=== PATIENT | female | born 1965 | race Caucasian/White ===

== ENCOUNTER 2021-05-18 18:59 | Emergency (ER) | payer OTHER ==
[~2021-05-18] VITALS: Ht 157.5 cm; Wt 61.2 kg
[2021-05-18 19:04] VITALS: BP 157/85
--- NOTE | 2021-05-18 19:32 | NUR ---
55 Y/O FEMALE PATIENT PRESENTS TO ED WITH C/O EPIGASTRIC PAIN X TODAY. PT STATES HAVING THIS PAIN ON AND OFF. PATIENT REPORTS CONSTIPATION X 3 DAYS. ABD IS SOFT, TENDER TO TOUCH. DENIES N/V/D; SKIN IS PINK/WARM/DRY; AAOX4 WITH EVEN AND STEADY GAIT; PATIENT STATES PAIN OF 8/10 AT THIS TIME THAT RADIATES TO THE RIGHT MID ABD; VSS; PATIENT POSITIONED FOR COMFORT; HOB ELEVATED; BEDRAILS UP X1; BED DOWN. PMEDHX:JULIENNE NKDA
[2021-05-18 19:38] LABS: BASOPHILS % (AUTO) 0.5 % (0.0-2.0); EOSINOPHILS # (AUTO) 0.6 K/uL (0-0.4); EOSINOPHILS % (AUTO) 9.8 % (0.0-4.0); HEMATOCRIT 29.4 % (36-48); LYMPHOCYTES # (AUTO) 1.5 K/uL (2.5-16.5); LYMPHOCYTES % (AUTO) 22.8 % (20.5-51.1); MEAN CORPUSCULAR HEMOGLOBIN 32 pg (27-31); MEAN CORPUSCULAR HGB CONC 34 g/dL (33-37); MEAN CORPUSCULAR VOLUME 92.7 fL (80-94); MONOCYTES # (AUTO) 0.4 K/uL (0.8-1.0); MONOCYTES % (AUTO) 6.8 % (1.7-9.3); NEUTROPHILS # (AUTO) 3.9 K/uL (1.8-7.7); NEUTROPHILS % (AUTO) 60.1 % (42.2-75.2); PLATELET COUNT (AUTO) 252 K/uL (140-450); RED BLOOD CELL COUNT(AUTO) 3.17 MIL/uL (4.20-5.40); WHITE BLOOD COUNT (AUTO) 6.5 K/uL (4.8-10.8)
[2021-05-18 19:59] LABS: ALBUMIN 3.6 g/dL (3.4-5.0); ANION GAP 13.9 (8-16); CARBON DIOXIDE 25.3 mmol/L (21-32); CREATININE 1.3 mg/dL (0.6-1.3); POTASSIUM 5.2 mmol/L (3.5-5.1); TOTAL BILIRUBIN 0.3 mg/dL (0.0-1.0)
--- NOTE | 2021-05-18 20:29 | NUR ---
us at bedside.
[2021-05-18] MEDS ORDERED: DICYCLOMINE HCL LIQUID 20 MG, ALUMINUM HYD/MAG/SIMETHICONE 30 ML, LIDOCAINE VISCOUS 2% ... PO ONE ×3 (21:55)
[2021-05-18] MEDS ORDERED: HYDROcodone/APAP 5/325 MG 1 TAB TAB PO ONE (22:05)
[2021-05-18 22:11] LABS: APPEARANCE,URINE CLEAR (CLEAR); BILIRUBIN,URINE NEGATIVE (NEGATIVE); BLOOD, URINE TRACE-I (NEGATIVE); COLOR,URINE YELLOW (YELLOW); LEUKOCYTE ESTERASE ,URINE NEGATIVE (NEGATIVE); NITRITE, URINE NEGATIVE (NEGATIVE); UGLUCOSE 2+ (NEGATIVE)
--- NOTE | 2021-05-18 22:19 | NUR ---
lab at bedside.
[2021-05-18 22:30] LABS: WBC,URINE 0-5 /HPF (0-5)
[2021-05-18] MEDS ORDERED: NACL 0.9% 1,000 ML IV ONE (22:30)
--- NOTE | 2021-05-18 22:55 | NUR ---
pt placed in gown.
--- NOTE | 2021-05-18 23:02 | NUR ---
pt taken to ct.
--- NOTE | 2021-05-18 23:09 | NUR ---
pt back from ct.
--- NOTE | 2021-05-18 23:28 | NUR ---
pt states the pain has now subsided and feels a lot better. pt is in stable condition. vss. bed locked in lowest position, side railsx2 for safety. son is at bedside.
--- NOTE | 2021-05-19 01:30 | NUR ---
pt ambulated to and back to bed.
[2021-05-19] MEDS ORDERED: ACET-8386 PO (02:32)
[2021-05-19] MEDS ORDERED: NAPR-54 PO (02:33)
--- NOTE | 2021-05-19 02:34 | NUR ---
blood sugar 252
[2021-05-19] MEDS ORDERED: BLOOD GLUCOSE MONITORING 1 DEV DEV FS ONE (02:35)
[2021-05-19 02:42] VITALS: BP 134/73
--- NOTE | 2021-05-19 02:42 | NUR ---
Patient discharged with v/s stable. Written and verbal after care instructions given and explained about biliary colic and abd pain. Patient alert, oriented and verbalized understanding of instructions. Ambulatory with steady gait. All questions addressed prior to discharge. ID band removed. Patient advised to follow up with PMD. Rx of norco and naprosyn given. Patient educated on indication of medication including possible reaction and side effects. Opportunity to ask questions provided and answered.
== END 2021-05-19 02:42 | disposition home or self-care (01) ==
LOC: MED 18:59
DX: K80.20 Calculus of gallbladder without cholecystitis without obstruction (principal); E11.9 Type 2 diabetes mellitus without complications; Z79.899 Other long term (current) drug therapy; Z79.84 Long term (current) use of oral hypoglycemic drugs
CPT/HCPCS: 36415; 74176; 76705; 80053; 81001; 83690; 84132; 84484; 85025; 93005; 96360; 99285; J7030; Q0092; 81002

== ENCOUNTER 2022-06-25 13:06 | Emergency (ER) | payer OTHER ==
[~2022-06-25] VITALS: Ht 157.5 cm; Wt 56.7 kg
[~2022-06-25 13:06] MED LIST: ACET-8905 PO; NAPR-54 PO
[2022-06-25 13:12] VITALS: BP 111/60
--- NOTE | 2022-06-25 14:51 | NUR ---
AMBULATED TO BED 6
--- NOTE | 2022-06-25 14:54 | NUR ---
DR RAMIREZ AT BEDSIDE FOR EVAL
--- NOTE | 2022-06-25 14:56 | NUR ---
56 Y/O FEMALE BIB SELF C/O URINARY RETENTION, PER PT SHE HAD BLADDER SURGERY ON 06/12/22 AND GOMEZ CATHETER WAS REMOVED AT 1000H TODAY. PER PT SHE HAS NOT BEEN ABLE TO URINATE SINCE. SCANT AMOUNT OF URINE URINATED BY PT IN URINE CUP. PMH:BLADDER PROLAPSE, DM
--- NOTE | 2022-06-25 14:56 | NUR ---
DR RAMIREZ AT BEDSIDE WITH US FOR VISUALIZATION OF BLADDER
--- NOTE | 2022-06-25 15:11 | NUR ---
# 16 FR Mcnair catheter with 10 ml utilizing sterile technique. Immediate return of 200 ml CLEAR STRAW COLORED urine noted. Bedside drainage bag placed below level of bladder. Urine sample collected and sent to lab. Pt tolerated procedure WELL.
[2022-06-25 15:18] LABS: BILIRUBIN,URINE NEGATIVE (NEGATIVE); BLOOD, URINE 3+ (NEGATIVE); COLOR,URINE YELLOW (YELLOW); LEUKOCYTE ESTERASE ,URINE 2+ (NEGATIVE); NITRITE, URINE NEGATIVE (NEGATIVE); PH,URINE 7.5 (5.0-9.0); UGLUCOSE 3+ (NEGATIVE)
--- NOTE | 2022-06-25 15:23 | NUR ---
REMOVED 690CC OF CLEAR STRAW COLORED URINE, CHANGED TO LEG BAG
[2022-06-25 15:29] LABS: APPEARANCE,URINE HAZY (CLEAR)
--- NOTE | 2022-06-25 15:31 | NUR ---
PER DR JAMES CHONG FOR PT TO KEEP GOMEZ AND NOT CHANGED INTO A LEG BAG, PER PT SHE USED A GOMEZ AND NOT A LEG BAG FOR PREVIOUS CATHETER
[2022-06-25 15:39] LABS: RBC,URINE 20-50 /HPF (0-5); WBC,URINE TOO MANY TO COUNT /HPF (0-5)
--- NOTE | 2022-06-25 15:47 | NUR ---
DR RAMIREZ AT BEDSIDE FOR REEVAL
[2022-06-25 16:03] VITALS: BP 102/74
--- NOTE | 2022-06-25 16:04 | NUR ---
Patient discharged with v/s stable. Written and verbal after care instructions given and explained. Patient verbalized understanding. Ambulatory with steady gait. All questions addressed prior to discharge. Advised to follow up with PMD.
== END 2022-06-25 16:03 | disposition home or self-care (01) ==
LOC: MED 13:06
DX: N39.0 Urinary tract infection, site not specified (principal); R33.9 Retention of urine, unspecified; E11.9 Type 2 diabetes mellitus without complications; Z79.4 Long term (current) use of insulin; Z79.899 Other long term (current) drug therapy
CPT/HCPCS: 51702; 81001; 87086; 99284

== ENCOUNTER 2022-08-08 14:20 | Emergency (ER) | payer OTHER ==
[~2022-08-08] VITALS: Ht 162.6 cm; Wt 59.0 kg
[~2022-08-08 14:20] MED LIST changes: +CIPR500T4 PO
[2022-08-08 14:37] VITALS: BP 120/65
--- NOTE | 2022-08-08 15:14 | NUR ---
Patient ambulated to bed 8
[2022-08-08] MEDS ORDERED: cephALEXin 500 MG CAP PO ONE (15:15)
--- NOTE | 2022-08-08 15:26 | NUR ---
X-Ray at bedside.
--- NOTE | 2022-08-08 16:09 | NUR ---
Dr. Boles re-evaluating patient at bedside.
[2022-08-08] MEDS ORDERED: CEPH-588 PO (16:17)
[2022-08-08] MEDS ORDERED: [UNRECOGNIZED DRUG - CODE] TOP (16:17)
[2022-08-08 16:45] VITALS: BP 107/56
--- NOTE | 2022-08-08 16:45 | NUR ---
Patient discharged with v/s stable. Written and verbal after care instructions given. Patient alert, oriented and verbalized understanding of instructions. Ambulatory with steady gait. All questions addressed prior to discharge. ID band removed. Patient advised to follow up with PMD. Rx of Bacitracin and Keflex given. Opportunity to ask questions provided and answered.
--- NOTE | 2022-08-08 16:50 | NUR ---
The patient's care was reviewed and supervised by [facility], RN.
== END 2022-08-08 16:45 | disposition home or self-care (01) ==
LOC: MED 14:20
DX: L03.116 Cellulitis of left lower limb (principal); E11.9 Type 2 diabetes mellitus without complications; I10 Essential (primary) hypertension; Z79.4 Long term (current) use of insulin; Z79.899 Other long term (current) drug therapy
CPT/HCPCS: 73630; 82948; 99283

== ENCOUNTER 2023-10-05 10:45 | Emergency (ER) | payer OTHER ==
[~2023-10-05] VITALS: Ht 157.5 cm; Wt 60.3 kg
[~2023-10-05 10:45] MED LIST changes: +CEPH-588 PO; +NAPR-337 PO; -NAPR-54 PO; +[UNRECOGNIZED DRUG - CODE] TOP
[2023-10-05 11:20] VITALS: BP 146/69; PULSE 82; RESP 20; TEMP 98; O2SAT 100
[2023-10-05] MEDS ORDERED: IBUP-1842 PO (12:11)
== END 2023-10-05 12:20 | disposition home or self-care (01) ==
LOC: MED 10:45
DX: M25.571 Pain in right ankle and joints of right foot (principal); E78.5 Hyperlipidemia, unspecified; I10 Essential (primary) hypertension; E11.9 Type 2 diabetes mellitus without complications; Z79.2 Long term (current) use of antibiotics; Z79.899 Other long term (current) drug therapy
CPT/HCPCS: 73610; 90471; 90715; 99283